=== PATIENT | male | born 2000 | race Two or more races ===

== ENCOUNTER 2019-08-01 12:17 | Emergency (ER) | payer SELFPAY ==
[~2019-08-01] VITALS: Ht 180.3 cm; Wt 81.6 kg
[2019-08-01] MEDS ORDERED: ACETAMINOPHEN 325 MG TAB PO ONE ×2 (12:57→13:00)
[2019-08-01 13:00] VITALS: BP 128/59
== END 2019-08-01 15:46 | disposition home or self-care (01) ==
LOC: EDBD → ER 12:26
DX: S93.402A Sprain of unspecified ligament of left ankle, initial encounter (principal); S93.602A Unspecified sprain of left foot, initial encounter; W19.XXXA Unspecified fall, initial encounter; Y93.02 Activity, running; Y92.89 Other specified places as the place of occurrence of the external cause; Y99.8 Other external cause status
CPT/HCPCS: 29515; 73610; 73630

== ENCOUNTER 2019-08-08 19:00 | Emergency (ER) | payer SELFPAY ==
[~2019-08-08] VITALS: Ht 180.3 cm; Wt 81.6 kg
[2019-08-08 21:06] VITALS: BP 123/57
== END 2019-08-08 21:05 | disposition home or self-care (01) ==
LOC: ER 19:02
DX: S93.492A Sprain of other ligament of left ankle, initial encounter (principal); F12.10 Cannabis abuse, uncomplicated; X50.0XXA Overexertion from strenuous movement or load, initial encounter; Y93.89 Activity, other specified; Y99.8 Other external cause status; Y92.89 Other specified places as the place of occurrence of the external cause